=== PATIENT | female | born 1930 | race Two or more races ===

== ENCOUNTER 2019-12-18 10:30 | Inpatient (IN) | payer OTHER ==
[~2019-12-18] VITALS: Ht 165.1 cm; Wt 66.2 kg
[2019-12-18] MEDS ORDERED: ATORVASTATIN CA10 MG PO (12:45)
[2019-12-18] MEDS ORDERED: ALTACE5 MG PO (12:45)
[2019-12-18] MEDS ORDERED: FLUTICASONE-SA1 EAC5 (12:45)
[2019-12-18] MEDS ORDERED: LEVO-T88 MCG PO (12:45)
[2019-12-18] MEDS ORDERED: VITAMIN D250 MC1 PO (12:46)
[2019-12-25] MEDS ORDERED: WIXELA 250-501 EACH (07:58)
[2019-12-25] MEDS ORDERED: FLONASE16 GM (07:58)
== END 2019-12-28 16:17 | disposition home or self-care (01) | DRG 331 ==
LOC: O/R 12-25 06:00 → SURH 12-25 06:00
PROVIDERS: ADMIT Colon & Rectal Surgery; ATTEND Colon & Rectal Surgery
PROC: 0DBN4ZZ Excision of Sigmoid Colon, Percutaneous Endoscopic Approach (ICD-10-PCS; 2019-12-25)
PROC: 07BC4ZX Excision of Pelvis Lymphatic, Percutaneous Endoscopic Approach, Diagnostic (ICD-10-PCS; 2019-12-25)
PROC: 3E0F7GC Introduction of Other Therapeutic Substance into Respiratory Tract, Via Natural or Artificial Opening (ICD-10-PCS; 2019-12-25)
PROC: 0DTP4ZZ Resection of Rectum, Percutaneous Endoscopic Approach (ICD-10-PCS; principal; 2019-12-25 08:00)
DX: D12.7 Benign neoplasm of rectosigmoid junction (principal); E78.00 Pure hypercholesterolemia, unspecified; J45.20 Mild intermittent asthma, uncomplicated; N18.3 Chronic kidney disease, stage 3 (moderate); I13.10 Hypertensive heart and chronic kidney disease without heart failure, with stage 1 through stage 4 chronic kidney disease, or unspecified chronic kidney disease; D64.89 Other specified anemias